=== PATIENT | female | born 1980 | race Caucasian/White ===

== ENCOUNTER 2016-08-20 08:57 | Emergency (ER) | payer OTHER ==
--- NOTE | 2016-08-20 09:22 | PDOC ---
History of Present Illness - General Chief Complaint: Pain Stated Complaint: LOWER BACK PAIN Time Seen by Provider: 08/20/16 09:09 History Source: Patient Exam Limitations: No Limitations - History of Present Illness Initial Comments: 08/20/16 09:44 35y F presents with back pain since this morning, approx 4am, worse in the R back and radiates to the RLQ associated with nausea and vomiting. The pt states the pain is constant, but seems to feel alittle better when she sits up. No associaed fever/chills, diarrhea, dysuria, vag bleeding, vag discharge. Pt notes that she has not urinated since last night. LMP 2 weeks ago Past History - Past Medical History Allergies/Adverse Reactions: Allergies Allergy/AdvReac Type Severity Reaction Status Date / Time No Known Allergies Allergy Verified 08/20/16 09:08 Home Medications: Ambulatory Orders Ibuprofen 400 mg PO QID #30 tablet 08/20/16 Oxycodone HCl/Acetaminophen [Percocet 5-325 mg Tablet] 1 tab PO Q4H PRN #14 tablet MDD 4 08/20/16 Tamsulosin HCl [Flomax] 0.4 mg PO DAILY #7 cap.er.24h 08/20/16 Asthma: No Cancer: No Cardiac Disorders: No Diabetes: No HTN: No Seizures: No Thyroid Disease: No - Psycho/Social/Smoking Cessation Hx Suicidal Ideation: No Smoking Status: Yes Smoking History: Never smoked Have you smoked in the past 12 months: No Number of Cigarettes Smoked Daily: 2 If you are a former smoker, when did you quit?: YES Hx Alcohol Use: No Drug/Substance Use Hx: No Substance Use Type: None Hx Substance Use Treatment: No Review of Systems - Review of Systems Able to Perform ROS?: Yes Comments:: 08/20/16 09:49 Constitutional - no reported Fever, Chills, HEENT: no reported vision changes, sore throat Respiratory: no reported cough, sob, hemoptysis Cardiac: no reported chest pain, palpitations, light headedness, leg swelling Abd/GI: +R flank pain radiating to RLQ, nausea, vomiting, no reported blood per rectum, melena, diarrhea : no reported dysuria, frequency, discharge Musculskelatal - no reported back pain, joint swelling skin - no reported bruising, erythema, rash neurological: no reported headache, numbness, focal weakness, tingling, ataxia, hematologic: no reported anemia, easy bruising, easy bleeding *Physical Exam - Vital Signs Last Vital Signs Temp Pulse Resp BP Pulse Ox 98.4 F 83 18 159/90 100 08/20/16 09:09 08/20/16 09:09 08/20/16 09:09 08/20/16 09:09 08/20/16 09:09 - Physical Exam Comments: 08/20/16 09:49 GENERAL: The patient is awake, alert, and fully oriented, Nontoxic - in no acute distress. HEAD: Normocephalic, atraumatic. EYES: extraocular movements intact, sclera anicteric, conjunctiva clear. ENT: Normal voice, Moist mucous membranes. NECK: Normal range of motion, supple LUNGS: Breath sounds equal, clear to auscultation bilaterally. No wheezes, no rhonchi, no rales. HEART: Regular rate and rhythm, normal S1 and S2 without murmur, rub or gallop. ABDOMEN: soft, mild RLQ tenderness normoactive bowel sounds. No guarding, no rebound. No CVA tenderness EXTREMITIES: Normal range of motion, no edema. No clubbing or cyanosis. No cords, erythema, or tenderness. NEUROLOGICAL: No facial assymetry, Normal speech, PSYCH: Normal mood, normal affect. SKIN: Warm, Dry, normal turgor, ED Treatment Course - LABORATORY CBC & Chemistry Diagram: 08/20/16 09:48 08/20/16 09:48 Medical Decision Making - Medical Decision Making 08/20/16 09:50 35y F presenting with R flank pain radiating to RLQ w/ n/v abd soft, mild rlq tenderness suspect possible kdiney stone, msk pain, consider possible appendicits, consider will ck cbc, cmp, ua, uhcg will give toradol, fluids, zofran will reassess 08/20/16 16:[address] c/w kidney stone w/o hydro will dc the pt with gU f the pt has been feeling improved return precatuions were discussed I discussed the physical exam findings, ancillary test results and final diagnoses with the patient. I answered all of the patient's questions. The patient was satisfied with the care received and felt comfortable with the discharge plan and treatment plan. The patient will call their primary care physician within 24 hours to arrange follow-up and will return to the Emergency Department with any new, persistent or worsening symptoms. *DC/Admit/Observation/Transfer Diagnosis at time of Disposition: Kidney stone on right side - Discharge Dispostion Disposition: HOME Condition at time of disposition: Improved Admit: No - Prescriptions Prescriptions: Tamsulosin HCl [Flomax] 0.4 mg PO DAILY #7 cap.er.24h Ibuprofen 400 mg PO QID #30 tablet Oxycodone HCl/Acetaminophen [Percocet 5-325 mg Tablet] 1 tab PO Q4H PRN #14 tablet MDD 4 PRN Reason: Pain - Referrals Referrals: Catracho Hodgson MD [Staff Physician] - - Patient Instructions Printed Discharge Instructions: DI for Kidney Stones Additional Instructions: Return to the emergency department immediately with ANY new, persistent or worsening symptoms including worsening pain, fevers, inability to tolerate oral intake or any other concerns. Take the pain medication as prescribed. Followup with urology for your kidney stones. You MUST call and follow up with your doctor tomorrow for further evaluation of your symptoms. Results were discussed with you. Please make sure your doctor reviews the results of your emergency evaluation. Print Language: MALDIVIAN
[2016-08-20] MEDS ORDERED: ONDANSETRON 4 MG/2 ML VIAL IVPB ONE (09:23)
[2016-08-20] MEDS ORDERED: KETOROLAC TROMETHAMINE 30 MG/1 ML VIAL IVPUSH ONE (09:23)
[2016-08-20 09:34] VITALS: TEMP 98.4; BMI 30.2
[2016-08-20] MEDS ORDERED: SODIUM CHLORIDE 1,000 ML IV ONE ×2 (09:42→12:04)
[2016-08-20] MEDS ORDERED: ONDANSETRON 4 MG/2 ML VIAL ONE (09:50)
[2016-08-20] MEDS ORDERED: KETOROLAC TROMETHAMINE 30 MG/1 ML VIAL ONE (09:50)
[2016-08-20 10:21] LABS: ALK PHOS 65 U/L (45-117); ANION GAP 8 (8-16); BILIRUBIN,TOTAL 0.3 mg/dL (0.2-1.0); CALCIUM 9.3 mg/dL (8.5-10.1); CO2 27 mmol/L (21-32); COCKROFT - GAULT 113.5175; CREATININE 0.8 mg/dL (0.55-1.02); GLUCOSE,RANDOM 142 mg/dL (74-106); SGOT/AST 8 U/L (15-37); SGPT/ALT 19 U/L (12-78); TOT PROT 7.2 g/dl (6.4-8.2)
[2016-08-20 10:28] LABS: BASOPHIL 0.2 % (0-2.0); MCH 29.6 pg (25.7-33.7); MCHC 33.8 g/dl (32.0-36.0); MEAN CELL VOLUME 87.7 fl (80-96); MEAN PLT VOLUME 8.2 fl (7.5-11.1); NEUTROPHILS 89.7 % (42.8-82.8); PLATELET COUNT 172 K/MM3 (134-434); RDW 12.8 % (11.6-15.6); WHITE BLOOD COUNT 12.7 K/mm3 (4.0-10.0)
[2016-08-20 14:25] LABS: URINE APPEARANCE CLEAR; URINE BILIRUBIN NEGATIVE (NEGATIVE); URINE COLOR LTYELLOW; URINE GLUCOSE (UA) NEGATIVE (NEGATIVE); URINE KETONE NEGATIVE (NEGATIVE); URINE LEUK ESTERASE NEGATIVE (NEGATIVE); URINE NITRITE NEGATIVE (NEGATIVE); URINE PROTEIN NEGATIVE (NEGATIVE); URINE UROBILINOGEN NEGATIVE E.U./dl (0.2-1.0)
[2016-08-20 14:51] LABS: URINE BLOOD 3+ (NEGATIVE)
[2016-08-20 16:07] LABS: URINE HYALINE CAST 3 /lpf; URINE MUCUS MODERATE; URINE RBC 47 /hpf (0-3); URINE WBC 2 /hpf (3-5)
[2016-08-20 16:46] VITALS: BP 134/74; PULSE 79
== END 2016-08-20 16:46 | disposition home or self-care (01) ==
LOC: JER 08:57
PROC: 3E0337Z Introduction of Electrolytic and Water Balance Substance into Peripheral Vein, Percutaneous Approach (ICD-10-PCS; principal; 2016-08-20)
DX: N20.0 Calculus of kidney (principal)
CPT/HCPCS: 36415; 74176; 80053; 81003; 81015; 84703; 85025; 99283-25